=== PATIENT | male | born 1960 | race Caucasian/White ===

== ENCOUNTER 2017-09-10 14:35 | Emergency (ER) | payer OTHER, SELFPAY ==
[2017-09-10 14:41] VITALS: BP 138/82; PULSE 94; RESP 18; TEMP 36.9; O2SAT 95; BMI 30.4
--- NOTE | 2017-09-10 14:52 | DI.RAD.S_ITS ---
PROCEDURE: XR CHEST 2V INDICATIONS: chest pain TECHNIQUE: 2 views of the chest were acquired. COMPARISON: [facility], , CHEST 2 VIEW, 07/07/2016, 13:48. FINDINGS: Surgical changes and devices: None. Lungs and pleura: Small pleural effusions. No pneumothorax. Bibasilar pulmonary opacities left greater than right. Mediastinum: Mediastinal contours are normal. Heart size is normal. Bones and chest wall: No suspicious bony abnormalities. Soft tissues appear unremarkable. IMPRESSION: Trace pleural effusions with bibasilar pulmonary opacities left greater than right consistent with atelectasis or infiltrates. Dictated by: Anthony Kaur M.D. on 09/10/2017 at 14:23 Approved by: Anthony Kaur M.D. on 09/10/2017 at 14:25
[2017-09-10 15:05] LABS: Add Manual Diff / Slide Review NO; Basophils Percent Auto 0.7 % (0-2); Eosinophils Percent Auto 0.7 % (2-4); Hematocrit 40.3 % (41-53); Lymphocytes Percent Auto 18.8 % (25-40); Mean Corpuscular HGB Conc 34.7 % (30-36); Mean Corpuscular Hemoglobin 31.4 PG (26-34); Mean Corpuscular Volume 90.4 fL (80-100); Monocytes Percent Auto 11.1 % (3-14); Neutrophils Absolute Auto 5600 /uL (3000-5900); Neutrophils Percent Auto 68.7 % (50-75); Platelet Count 305 X10^3/uL (150-400); Red Blood Cell Count 4.45 X10^6/uL (4.5-5.9); Red Cell Distribution Width 12.3 % (11.6-14.8); White Blood Cell Count 8.1 X10^3/uL (4.5-11.0)
--- NOTE | 2017-09-10 15:08 | ED_ITS ---
HPI - Chest Pain General Chief Complaint: Chest Pain Stated Complaint: SOB, CHEST PAIN Time Seen by Provider: 09/10/17 14:55 Source: patient Mode of arrival: ambulatory Limitations: no limitations History of Present Illness HPI narrative: 57M hx of recent Right sided PE on pradaxa last night had L side pleuritic Chest pain with deep respirations. Went to clinic today and got a CXR which apparently showed a right side consolidation. Patient was then referred to the ED. Patient reports his pain is improved from prior, though deep respirations can mildly reproduce pain. PE history started with a 2-3 day episode of back pain which caused patient to remain in bed. Found PE after episode of SOB and chest pain. had a CTA scan at [place]; then subsequent CTA scan was negative for PE. Related Data Home Medications Medication Instructions Recorded Confirmed cyclobenzaprine 10 mg PO TID PRN 08/21/17 08/21/17 dabigatran etexilate [Pradaxa] 150 mg PO BID 08/21/17 08/21/17 oxycodone-acetaminophen [Percocet] 2 tab PO Q6H PRN 08/21/17 08/21/17 Previous Rx's Medication Instructions Recorded ranitidine HCl 150 mg PO BID #60 cap 08/21/17 cyclobenzaprine 10 mg PO TID #10 tab 09/10/17 Allergies Allergy/AdvReac Type Severity Reaction Status Date / Time No Known Drug Allergies Allergy Verified 09/10/17 14:45 Review of Systems Constitutional Denies chills, Denies fever(s), Denies lethargy and Denies weakness ENT Ears, Nose, Mouth, and Throat: Denies change in voice, Denies neck pain and Denies sore throat Cardiovascular Reports chest pain, Denies irregular heart rhythm, Denies lightheadedness, Denies palpitations, Denies dyspnea, Denies dyspnea on exertion and Denies orthopnea Respiratory Denies cough, Reports pain on inspiration, Denies dyspnea, Denies dyspnea on exertion and Denies wheezing Gastrointestinal Gastrointestinal: Denies abdominal pain, Denies change in bowel habits, Denies diarrhea, Denies nausea and Denies vomiting Genitourinary Denies hematuria, Denies flank pain, Denies urinary incontinence and Denies urinary urgency Musculoskeletal Denies neck pain Integumentary/Breasts Denies pruritus, Denies erythema, Denies rash and Denies wounds Neurologic Denies weakness Endocrine Denies palpitations Allergic/Immunologic Denies wheezing PFSH Social History Smoking Status: Never smoker Exam Initial Vital Signs Initial Vital Signs: Vital Signs Temperature 98.5 F 09/10/17 14:41 Pulse Rate 94 H 09/10/17 14:41 Respiratory Rate 18 09/10/17 14:41 Blood Pressure 138/82 H 09/10/17 14:41 Pulse Oximetry 95 09/10/17 14:41 Const General: cooperative and well developed Nutritional Appearance: well nourished Orientation: alert, awake, oriented x3 and not confused Eyes General: appearance normal, both eyes and all related structures Eyelids: eyelids normal Conjunctivae: conjunctivae normal Sclera: sclerae normal Pupils: PERRL EOM: EOM intact bilaterally Chest Chest: normal inspection of the chest Resp Effort & Inspection: normal respiratory effort, able to speak in complete sentences, no respiratory distress and no use of accessory muscles Auscultation: clear to auscultation bilaterally, no rales, no rhonchi and no wheezes Cardio Rate: regular rate Rhythm: regular rhythm Heart Sounds: no click, no gallops, no murmurs and no rubs Pulses: normal peripheral pulses GI Inspection: non-distended Palpation: soft, no hepatosplenomegaly, No guarding, No pulsatile mass and No tender Auscultation: normal bowel sounds Skin General: no rashes or lesions noted, No jaundice and No petechiae Neuro General: alert, oriented x3, gait normal and no focal motor deficits Speech: speech normal Extrem General: full ROM, no clubbing, cyanosis or edema, no pedal edema and no calf tenderness Course Orders Ordered: ED Orders 09/10/17 14:52 XR chest 2V Stat 09/10/17 14:56 Complete Blood Count AUTO DIFF Stat Comprehensive Metabolic Panel Stat Lipase Stat Troponin with CK Cardiac Panel Stat Discontinued Medications Acetaminophen (Tylenol) 975 mg PO NOW ONE Stop: 09/10/17 16:15 Last Admin: 09/10/17 16:22 Dose: 975 mg Aspirin (Aspirin Chew) 324 mg PO NOW ONE Stop: 09/10/17 14:52 Last Admin: 09/10/17 15:02 Dose: Sodium Chloride (Normal Saline 0.9%) 1,000 mls @ 150 mls/hr IV CONT REMINGTON Last Infusion: 09/10/17 16:29 Dose: 0 mls/hr Admin: 09/10/17 15:56 Dose: 999 mls/hr Vital Signs - 8 hr 09/10/17 14:41 09/10/17 15:32 09/10/17 16:09 Temperature 98.5 F Pulse Rate 94 H 87 90 Respiratory Rate 18 17 20 Blood Pressure 138/82 H Blood Pressure [Right Arm] 123/78 H 120/75 Pulse Oximetry 95 93 95 09/10/17 16:32 Temperature Pulse Rate 87 Respiratory Rate 15 Blood Pressure 125/75 H Blood Pressure [Right Arm] Pulse Oximetry 96 MDM - Chest Pain Lab Data Result diagrams: 09/10/17 14:56 09/10/17 14:56 Lab Results 09/10/17 09/10/17 Range/Units 14:56 14:56 WBC 8.1 (4.5-11.0) X10^3/uL RBC 4.45 L (4.5-5.9) X10^6/uL Hgb 14.0 (13.5-17.5) g/dL Hct 40.3 L (41-53) % MCV 90.4 (80-100) fL MCH 31.4 (26-34) PG MCHC 34.7 (30-36) % RDW 12.3 (11.6-14.8) % Plt Count 305 (150-400) X10^3/uL Neut % (Auto) 68.7 (50-75) % Lymph % (Auto) 18.8 L (25-40) % [place] % (Auto) 11.1 (3-14) % Eos % (Auto) 0.7 L (2-4) % Baso % (Auto) 0.7 (0-2) % Neut # (Auto) 5600 (4175-5143) /uL Sodium 142 (137-145) mmol/L Potassium 3.8 (3.4-5.1) mmol/L Chloride 101.0 (98-107) mmol/L Carbon Dioxide 26.0 (22-32) mmol/L BUN 18.0 (9-20) mg/dL Creatinine 0.90 (0.66-1.25) mg/dL Estimated GFR > 60.0 (>60) mL/min BUN/Creatinine Ratio 20.0 (6-22) Glucose 143 H (70-100) mg/dL Calcium 9.0 (8.4-10.2) mg/dL Total Bilirubin 1.2 (0.2-1.3) mg/dL AST 23 (17-59) IU/L ALT 36 (21-72) IU/L Alkaline Phosphatase 81 (38-126) U/L Total Creatine Kinase 53 L (55-170) U/L Troponin I < 0.012 (0.01-0.034) ng/mL Total Protein 7.3 (6.3-8.2) g/dL Albumin 4.0 (3.5-5.0) g/dL Globulin 3.3 (1.7-4.1) g/dL Albumin/Globulin Ratio 1.2 (1.0-2.8) Lipase 80 (23-300) U/L ECG Data Interpretation: Sinus rhythm HR [address]/Tw changes No ectopy FL intervals WNL MDM Narrative Medical decision making narrative: Patient symptoms likely back spasm. His SOB is more splinting due to pain from spasm. His CXR does not show any significant difference from CT on record. He is already treated with pradaxa. Vital signs stable, EKG WNL. Patient advised to take tylenol for pain and avoid increasing bleeding risk by taking other NSAIDs. Discharge Plan Departure Patient Disposition: Home, Self-Care Clinical Impression: Spasm of thoracic back muscle Discharge Date/Time: 09/10/17 16:34 Interventions: ED Discharge Assessment Last Done: 09/10/17 16:32 Instructions: DI for Back Spasm Activity Restrictions/Additional Instructions: Maintain adequate hydration. Please follow up with your primary care provider. Continue your home medications. May take tylenol for pain. Prescriptions: New cyclobenzaprine 10 mg tablet 10 mg PO TID Qty: 10 RF: 0 No Action oxycodone-acetaminophen [Percocet] 5-325 mg Tablet 2 tab PO Q6H PRN (Reason: Pain) RF: 0 cyclobenzaprine 5 mg Tablet 10 mg PO TID PRN (Reason: Muscle Spasm) RF: 0 dabigatran etexilate [Pradaxa] 150 mg Capsule 150 mg PO BID RF: 0 ranitidine HCl 150 mg capsule 150 mg PO BID Qty: 60 RF: 0
[2017-09-10 15:12] LABS: HEMOLYSIS < 15 (0-50)
[2017-09-10 15:18] LABS: Alanine Aminotransferase 36 IU/L (21-72); Albumin Globulin Ratio 1.2 (1.0-2.8); Alkaline Phosphatase 81 U/L (38-126); Aspartate Aminotransferase 23 IU/L (17-59); Bilirubin Total 1.2 mg/dL (0.2-1.3); Creatine Kinase 53 U/L (55-170); Estimated Glomerular Filt Rate > 60.0 mL/min (>60); Globulin 3.3 g/dL (1.7-4.1); Glucose 143 mg/dL (70-100); Lipase 80 U/L (23-300); Potassium 3.8 mmol/L (3.4-5.1); Sodium 142 mmol/L (137-145); Total Protein 7.3 g/dL (6.3-8.2)
[2017-09-10 15:31] LABS: Troponin I < 0.012 ng/mL (0.01-0.034)
[2017-09-10 15:32] VITALS: BP 123/78; PULSE 87; RESP 17; O2SAT 93
[2017-09-10] MEDS: SODIUM CHLORIDE 0.9% 1,000 ML 999 ML IV (15:56)
[2017-09-10 16:09] VITALS: BP 120/75; PULSE 90; RESP 20; O2SAT 95
[2017-09-10] MEDS: ACETAMINOPHEN 325 MG TABLET 975 MG PO (16:22)
[2017-09-10 16:32] VITALS: BP 125/75; PULSE 87; RESP 15; O2SAT 96
== END 2017-09-10 16:34 | disposition home or self-care (01) ==
PROVIDERS: Emergency Provider Student in an Organized Health Care Education/Training Program; Family Provider Nurse Practitioner; PCP Nurse Practitioner
DX: M62.830 Muscle spasm of back (principal)
CPT/HCPCS: 36591; 71046; 80053; 82550; 82553; 83690; 84484; 85025; 93005; 96360; 99283; 99285

== ENCOUNTER 2019-01-25 14:49 | Emergency (ER) | payer OTHER, SELFPAY ==
[2019-01-25 14:58] VITALS: BP 145/87; PULSE 75; RESP 20; TEMP 36.4; O2SAT 97
--- NOTE | 2019-01-25 15:00 | DI.RAD.S_ITS ---
PROCEDURE: XR CHEST 2V INDICATIONS: chest pain TECHNIQUE: 2 views of the chest were acquired. COMPARISON: [facility], , CHEST 2 VIEW, 07/07/2016, 13:48. [facility], , XR CHEST 2V, 09/10/2017, 14:31. FINDINGS: Surgical changes and devices: None. Lungs and pleura: Lungs are clear. No pleural effusions or pneumothorax. Mediastinum: Mediastinal contours are normal. Heart size is normal. Bones and chest wall: No suspicious bony abnormalities. Soft tissues appear unremarkable. IMPRESSION: 1. No acute cardiopulmonary disease. Dictated by: Sesar Cochran M.D. on 01/25/2019 at 15:33 Approved by: Sesar Cochran M.D. on 01/25/2019 at 15:34
[2019-01-25 15:25] LABS: Add Manual Diff / Slide Review NO; Basophils Absolute Auto 100 /uL (0-100); Eosinophils Absolute Auto 100 /uL (0-450); Hematocrit 45.6 % (41-53); Hemoglobin 15.5 g/dL (13.5-17.5); Lymphocytes Absolute Auto 2100 /uL (1100-4500); Lymphocytes Percent Auto 35.1 % (25-40); Mean Corpuscular Hemoglobin 32.1 PG (26-34); Mean Corpuscular Volume 94.3 fL (80-100); Monocytes Absolute Auto 600 /uL (0-900); Monocytes Percent Auto 10.4 % (3-14); Neutrophils Absolute Auto 3000 /uL (1500-7000); Neutrophils Percent Auto 51.5 % (50-75); Platelet Count 283 X10^3/uL (150-400); Red Blood Cell Count 4.83 X10^6/uL (4.5-5.9); Red Cell Distribution Width 12.7 % (11.6-14.8); White Blood Cell Count 5.9 X10^3/uL (4.5-11.0)
[2019-01-25 15:41] LABS: D Dimer < 200 ng/mL (<230)
--- NOTE | 2019-01-25 15:42 | ED_ITS ---
HPI - Chest Pain General Chief Complaint: Chest Pain Stated Complaint: SHARP PAIN IN CHEST Time Seen by Provider: 01/25/19 15:21 Source: patient Mode of arrival: Ambulatory Limitations: no limitations History of Present Illness HPI narrative: 58-year-old male comes to the emergency department with complaint of chest pain. Patient comes in with complaint of sort of sharp pains in his chest. It started yesterday lasted for an hour insert resolved. Today starting at about 9:00 a.m. this morning is still present but not as intense. It is almost little bit between his shoulder blades. Patient denies any fevers, denies any chills, denies any cold cough or congestion. No hemoptysis. He states he does have a little bit of pleuritic chest pain with it is worse with the pencil a gray. He denies any pain with cough and has not had cough. He denies any other exacerbating factors besides twisting for movement, he states that walking or exertion does not seem to make it worse. Sitting still or not moving does seem to alleviate it. He does not appreciate of leaning forward or backwards makes any appreciable difference. No nausea, no vomiting. No issues with bowel movements or urination. Patient denies any swelling in extremities. Patient has had a history of pulmonary emboli and 3 weeks later was diagnosed with pericarditis. They did stop his anticoagulants and treated him with colchicine for his pericarditis. He is no longer on any medications. He states that they related his pulmonary emboli to lying in bed for several days secondary to back pain. He did have imaging that stated that his PE had cleared before he was diagnosed with pericarditis. Denies any past surgical history, no allergies, no tobacco. Drinks 2 alcoholic drinks daily and no illicits. He does live on [address]. Related Data Home Medications Medication Instructions Recorded Confirmed No Known Home Medications 01/25/19 01/25/19 Allergies Allergy/AdvReac Type Severity Reaction Status Date / Time No Known Drug Allergies Allergy Verified 09/10/17 14:45 Review of Systems Review of Systems ROS Unobtainable: All systems reviewed & are unremarkable except as noted in HPI and below Constitutional Constitutional: Denies chills, Denies fever(s), Denies lethargy and Denies weak ness Cardiovascular Cardiovascular: Reports chest pain, Denies chest pain at rest, Denies chest pain with activity, Denies syncope, Denies irregular heart rhythm, Denies lightheadedness, Denies radiating jaw, neck or arm pain (shoulders), Denies palpitations, Denies dyspnea, Denies dyspnea on exertion and Denies orthopnea Respiratory Respiratory: Denies change in phlegm color, Denies chest congestion, Denies cough, Denies hemoptysis, Denies excessive phlegm production, Reports pain on inspiration, Denies pain with cough, Denies dyspnea, Denies dyspnea on exertion and Denies wheezing Neurologic Neurologic: Denies syncope and Denies weakness Endocrine Endocrine: Denies palpitations Allergic/Immunologic Allergic/Immunologic: Denies wheezing [facility] Social History Smoking Status: Never smoker Exam Narrative Exam Narrative: GENERAL: Alert and oriented x three, well-nourished, well- appearing male in no acute distress. HEENT: Head normocephalic, atraumatic, EOMI, pupils reactive, face symmetric, moist mucous membranes NECK: Supple, full range of motion CARDIOVASCULAR: Regular rate and rhythm without murmurs, rubs or gallops. Non reproducible chest pain. RESPIRATORY: Breath sounds equal bilaterally, no wheezes rales or rhonchi. ABDOMEN: Soft, nontender. Normoactive bowel sounds all 4 quadrants. No guardi ng or rebound, rigidity, no mass : No CVA tenderness EXTREMITIES: Normal range of motion, no edema. Neurovascularly intact NEUROLOGICAL: Cranial nerves II through XII grossly intact. Moving all ex tremities SKIN: Warm, dry, no petechiae, no rashes or lesions. Initial Vital Signs Initial Vital Signs: Vital Signs Temperature 97.5 F L 01/25/19 14:58 Pulse Rate 75 01/25/19 14:58 Respiratory Rate 20 01/25/19 14:58 Blood Pressure 145/87 H 01/25/19 14:58 Pulse Oximetry 97 01/25/19 14:58 Scores HEART Score Heart Score history: Slightly Suspicious Heart Score EKG: Normal Heart Score Age: 45-64 years old Heart Score risk factors: 1-2 risk factors Heart Score troponin: < or = to normal limit Heart Score Total: 2 Course Orders Ordered: ED Orders 01/25/19 14:59 EKG-12 Lead Stat 01/25/19 15:00 Chest [XR chest 2V] Stat 01/25/19 15:15 C-Reactive Protein Quant Stat Complete Blood Count AUTO DIFF Stat Comprehensive Metabolic Panel Stat D Dimer Stat Erythrocyte Sedimentation Rate Stat Troponin & CK Cardiac Panel Stat Vital Signs Vital signs: Vital Signs - 8 hr 01/25/19 14:58 01/25/19 15:43 01/25/19 16:16 Temperature 97.5 F L Pulse Rate 75 74 79 Respiratory Rate 20 18 18 Blood Pressure 145/87 H Blood Pressure [Left Arm] 148/103 H 132/88 Pulse Oximetry 97 98 99 MDM - Chest Pain Lab Data Attestation: I reviewed the patient's lab results. Result diagrams: 01/25/19 15:15 01/25/19 15:15 Labs: Lab Results 01/25/19 01/25/19 01/25/19 Range/Units 15:15 15:15 15:15 WBC 5.9 (4.5-11.0) X10^3/uL RBC 4.83 (4.5-5.9) X10^6/uL Hgb 15.5 (13.5-17.5) g/dL Hct 45.6 (41-53) % MCV 94.3 (80-100) fL MCH 32.1 (26-34) PG MCHC 34.0 (30-36) % RDW 12.7 (11.6-14.8) % Plt Count 283 (150-400) X10^3/uL Neut % (Auto) 51.5 (50-75) % Lymph % (Auto) 35.1 (25-40) % [place] % (Auto) 10.4 (3-14) % Eos % (Auto) 2.0 (2-4) % Baso % (Auto) 1.0 (0-2) % Neut # (Auto) 3000 (5619-1942) /uL Lymph # (Auto) 2100 (5265-2438) /uL [place] # (Auto) 600 (0-900) /uL Eos # (Auto) 100 (0-450) /uL Baso # (Auto) 100 (0-100) /uL ESR (0-15) MM/HR D-Dimer < 200 (<230) ng/mL Sodium 140 (137-145) mmol/L Potassium 4.5 (3.4-5.1) mmol/L Chloride 103 (98-107) mmol/L Carbon Dioxide 30 (22-32) mmol/L BUN 16 (9-20) mg/dL Creatinine 0.90 (0.66-1.25) mg/dL Estimated GFR > 60.0 (>60) mL/min BUN/Creatinine Ratio 17.8 (6-22) Glucose 95 (70-100) mg/dL Calcium 9.2 (8.4-10.2) mg/dL Total Bilirubin 0.5 (0.2-1.3) mg/dL AST 49 (17-59) IU/L ALT 47 (21-72) IU/L Alkaline Phosphatase 69 (38-126) U/L Total Creatine Kinase 285 H (55-170) U/L CK-MB (CK-2) 0.52 (<2.37) ng/mL CK-MB (CK-2) Rel Index 0.2 L (1.5-5.0) % Troponin I < 0.012 (0.01-0.034) ng/mL C-Reactive Protein (<1.0) mg/dL Total Protein 7.5 (6.3-8.2) g/dL Albumin 4.4 (3.5-5.0) g/dL Globulin 3.1 (1.7-4.1) g/dL Albumin/Globulin Ratio 1.4 (1.0-2.8) 01/25/19 01/25/19 Range/Units 15:15 15:15 WBC (4.5-11.0) X10^3/uL RBC (4.5-5.9) X10^6/uL Hgb (13.5-17.5) g/dL Hct (41-53) % MCV (80-100) fL MCH (26-34) PG MCHC (30-36) % RDW (11.6-14.8) % Plt Count (150-400) X10^3/uL Neut % (Auto) (50-75) % Lymph % (Auto) (25-40) % [place] % (Auto) (3-14) % Eos % (Auto) (2-4) % Baso % (Auto) (0-2) % Neut # (Auto) (6775-2106) /uL Lymph # (Auto) (7184-8435) /uL [place] # (Auto) (0-900) /uL Eos # (Auto) (0-450) /uL Baso # (Auto) (0-100) /uL ESR 1 (0-15) MM/HR D-Dimer (<230) ng/mL Sodium (137-145) mmol/L Potassium (3.4-5.1) mmol/L Chloride (98-107) mmol/L Carbon Dioxide (22-32) mmol/L BUN (9-20) mg/dL Creatinine (0.66-1.25) mg/dL Estimated GFR (>60) mL/min BUN/Creatinine Ratio (6-22) Glucose (70-100) mg/dL Calcium (8.4-10.2) mg/dL Total Bilirubin (0.2-1.3) mg/dL AST (17-59) IU/L ALT (21-72) IU/L Alkaline Phosphatase (38-126) U/L Total Creatine Kinase (55-170) U/L CK-MB (CK-2) (<2.37) ng/mL CK-MB (CK-2) Rel Index (1.5-5.0) % Troponin I (0.01-0.034) ng/mL C-Reactive Protein < 0.5 (<1.0) mg/dL Total Protein (6.3-8.2) g/dL Albumin (3.5-5.0) g/dL Globulin (1.7-4.1) g/dL Albumin/Globulin Ratio (1.0-2.8) Imaging Data Chest x-ray: Radiologist's impression: [address] [address] XRay Report Signed Patient: Jovani Alan AARONR#: [id number] : 2Acct:[id number] Age/Sex: 58 / MDate of Service: 01/25/19 Loc: ED Accession Number: [id number] Procedure: XR chest 2V Ordering Provider: Lizabeth Barajas D.O. PROCEDURE: XR CHEST 2V INDICATIONS: chest pain TECHNIQUE: 2 views of the chest were acquired. COMPARISON: [facility], CHEST 2 VIEW, 07/07/2016, 13:48. [facility], , XR CHEST 2V, 09/10/2017, 14:31. FINDINGS: Surgical changes and devices: None. Lungs and pleura: Lungs are clear. No pleural effusions or pneumothorax. Mediastinum: Mediastinal contours are normal. Heart size is normal. Bones and chest wall: No suspicious bony abnormalities. Soft tissues appear unremarkable. IMPRESSION: 1. No acute cardiopulmonary disease. Dictated by: Sesar Cochran M.D. on 01/25/2019 at 15:33 Approved by: Sesar Cochran M.D. on 01/25/2019 at 15:34 ECG Data Attestation: I personally reviewed and interpreted this ECG as follows: Prior ECG tracings: available for review Interpretation: Sinus rhythm rate of 79 P are 175 QRS of 94 QTC of 395. No significant ST changes appreciated. Patient has Q-wave in 1 aVL patient does not have IN elevation today. Patient has some ST elevation on prior EKG done 09/10/2017 but on the prior from that earlier in August of 2017. MDM Narrative Medical decision making narrative: Discussed with patient has a history of pulmonary emboli, states that it was cleared and then he developed pericarditis 3 weeks later. Patient's ESR, CRP and troponin are negative. His D-dimer is negative. We had a long discussion about risks versus benefits for angiography. He feels comfortable in not doing angiography today. His vitals, EKG lab work and my evaluation do not increase my suspicion for PE significantly today and I feel that this is an appropriate decision. We did discuss that he needs to return if he is having any new or worsening symptoms and signs and symptoms to look out for. Patient is comfortable with this plan his is at bedside who is also a part of this discussion. Discharge Plan Departure Patient Disposition: Home Clinical Impression: Atypical chest pain Discharge Date/Time: 01/25/19 17:02 Instructions: DI for Atypical Chest Pain Activity Restrictions/Additional Instructions: Follow up with primary care or your specialist for recheck this week. You may take ibuprofen up to 800 mg every 8 hours as needed. Return to the emergency department for fevers greater 100.4 F, new chest pain, shortness of breath, lightheadedness, passing out, new swelling in your extremities, redness in her extremities, persistent vomiting, black or bloody stools or any other new or concerning symptoms. Prescriptions: No Action No Known Home Medications RF: 0 Referrals: Leah Ornelas ARNP [Primary Care Provider] -
[2019-01-25 15:43] VITALS: BP 148/103; PULSE 74; RESP 18; O2SAT 98
[2019-01-25 15:43] LABS: Alanine Aminotransferase 47 IU/L (21-72); Albumin 4.4 g/dL (3.5-5.0); Albumin Globulin Ratio 1.4 (1.0-2.8); Alkaline Phosphatase 69 U/L (38-126); Aspartate Aminotransferase 49 IU/L (17-59); BUN Creatinine Ratio 17.8 (6-22); Bilirubin Total 0.5 mg/dL (0.2-1.3); Blood Urea Nitrogen 16 mg/dL (9-20); Calcium 9.2 mg/dL (8.4-10.2); Carbon Dioxide 30 mmol/L (22-32); Chloride 103 mmol/L (98-107); Creatine Kinase 285 U/L (55-170); Estimated Glomerular Filt Rate > 60.0 mL/min (>60); Globulin 3.1 g/dL (1.7-4.1); Glucose 95 mg/dL (70-100); Sodium 140 mmol/L (137-145); Total Protein 7.5 g/dL (6.3-8.2)
[2019-01-25 15:44] LABS: HEMOLYSIS 59 (0-50)
[2019-01-25 15:45] LABS: Potassium 4.5 mmol/L (3.4-5.1)
[2019-01-25 15:55] LABS: Troponin I < 0.012 ng/mL (0.01-0.034)
[2019-01-25 15:58] LABS: CKMB % Relative Index 0.2 % (1.5-5.0); Creatine Kinase MB 0.52 ng/mL (<2.37)
[2019-01-25 16:16] VITALS: BP 132/88; PULSE 79; RESP 18; O2SAT 99
[2019-01-25 16:24] LABS: C-Reactive Protein Quant < 0.5 mg/dL (<1.0)
[2019-01-25 16:25] LABS: Erythrocyte Sedimentation Rate 1 MM/HR (0-15)
== END 2019-01-25 17:02 | disposition home or self-care (01) ==
PROVIDERS: Emergency Provider Emergency Medicine; Family Provider Nurse Practitioner; PCP Nurse Practitioner
DX: R07.89 Other chest pain (principal)
CPT/HCPCS: 36415; 71046; 80053; 82550; 82553; 84484; 85025; 85379; 85651; 86140; 93005; 99282; 99285

== ENCOUNTER → 2022-07-12 11:00 | Outpatient (CLI) | payer OTHER, SELFPAY ==
--- NOTE | 2022-07-12 | DI.MRI.S_ITS ---
PROCEDURE: MR LUMBAR SPINE WO CON INDICATIONS: Radiculopathy, lumbar region TECHNIQUE: Noncontrast sagittal T1 spin echo and T2 fast echo, sagittal STIR, and T2 fast spin echo through the lumbar spine. COMPARISON: [facility], [place], XR LUMBAR SPINE WITH OBLIQUES PLUS FLEXION EXTENSION, 07/02/2022, 9:41. [facility], CR, XR LUMBAR SPINE WITH OBLIQUES PLUS FLEXION EXTENSION, 05/22/2021, 14:46. FINDINGS: Image quality: Excellent. Alignment and Curvature: There is normal bony alignment. Bone Marrow: Mild Modic type 1 degenerative endplate changes at the L3-4 level posteriorly. Marrow is of normal overall signal. No acute vertebral body compression fractures. Spinal Cord: Conus medullaris terminates at the L1 level. Visualized cord demonstrates normal signal and size. Paraspinous Soft Tissues: No paravertebral masses. Mild grade 1-2 fatty infiltration of the paraspinous musculature. T12-L1: Disc desiccation without significant spinal canal stenosis or neural foraminal narrowing. L1-L2: Disc desiccation and mild circumferential disc bulging without significant spinal canal stenosis or neural foraminal narrowing. L2-L3: Disc desiccation and mild circumferential disc bulging and mild bilateral facet hypertrophy resulting in mild bilateral neural foraminal narrowing without significant spinal canal stenosis. L3-L4: Disc desiccation and loss of disc space height with circumferential disc bulging and mild bilateral facet hypertrophy. Findings result in mild to moderate narrowing of the bilateral neural foramina and without significant spinal canal stenosis. L4-L5: Disc desiccation and loss of disc space height with circumferential disc bulging and a superimposed central disc protrusion measuring approximately 12 x 3 mm as well as mild to moderate bilateral facet hypertrophy. Findings result in mild narrowing of the spinal canal as well as moderate left and [id number] right neural foraminal narrowing. L5-S1: Disc desiccation and loss of disc space height with mild circumferential disc bulging as well as a small central disc protrusion and mild bilateral facet hypertrophy. Findings do not result in significant spinal canal stenosis or neural foraminal narrowing. IMPRESSION: 1. Multilevel [id number] degenerative disc disease and facet hypertrophy as described in detail in the body of the report. Small central disc protrusions are seen at the L4-5 and L5-S1 levels. 2. No high-grade spinal canal stenosis or high-grade neural foraminal narrowing. Approved by: Hardeep Arias M.D. on 07/12/2022 at 12:07
== END ==
PROVIDERS: PCP Nurse Practitioner; Referring Provider Physical Medicine & Rehabilitation Pain Medicine; Visit Provider Physical Medicine & Rehabilitation Pain Medicine
DX: M54.16 Radiculopathy, lumbar region (principal); M51.36 Other intervertebral disc degeneration, lumbar region; M48.061 Spinal stenosis, lumbar region without neurogenic claudication; M47.896 Other spondylosis, lumbar region
CPT/HCPCS: 72148

== ENCOUNTER 2023-07-31 08:30 | Outpatient (RCR) | payer OTHER, SELFPAY | END 2023-07-31 10:30 | LOC: CAR 08:30 | PROVIDERS: PCP Nurse Practitioner; Referring Provider Physician Assistant Surgical; Visit Provider Physician Assistant Surgical | DX: Z95.1 Presence of aortocoronary bypass graft (principal) | CPT/HCPCS: 93798 ==

== ENCOUNTER 2023-08-25 08:46 | Day surgery (SDC) | payer OTHER, SELFPAY ==
--- NOTE | 2023-08-25 | PATH_ITS ---
[facility] Accession Number: [id number] No. of containers..02 Tissue . 01 Material submitted: . PART A: colon - ASCENDING COLON POLYP PART B: colon - SIGMOID POLYP . 01 Diagnosis: Part A: ASCENDING COLON POLYP: Tubular adenoma. . Part B: SIGMOID POLYP: Tubular adenoma. STO 08/29/2023 1234 Local . 01 Electronically signed: . Sesar Johns MD, Pathologist NPI- [id number] . 01 Gross description: . Part A: ASCENDING COLON POLYP: Received in formalin are 2 fragment(s) of garcia, soft tissue measuring 0.2 x 0.2 x 0.2 cm to 0.7 x 0.6 x 0.4 cm submitted entirely in 1 cassette(s) . Part B: SIGMOID POLYP: Received in formalin are multiple fragment(s) of garcia, soft tissue measuring 0.1 x 0.1 x 0.1 cm to 0.7 x 0.6 x 0.4 cm submitted entirely in 1 cassette(s) /KRISTINE 08/29/2023 1234 Local . 01 Pathologist provided ICD-10: D12.2, D12.5 . 01 CPT . 062854, 032822 Specimen Comment: A courtesy copy of this report has been sent to [phone] Performed at: [facility] [address] [place] [address], [place], [place] [id number] MD Sesar Johns MD Phone: [phone]
--- NOTE | 2023-08-25 09:41 | PM.HP.1 ---
History of Present Illness History of Present Illness Date Patient Seen: 08/25/23 Time Patient Seen: 09:41 Chief complaint: Dx Colonoscopy Narrative: Jovani is a 63-year-old man who had a positive fit test. It has been over 10 years since his last colonoscopy. Did have heart surgery last year. He has recently stopped his Plavix were good at the advice of his project manager.. [facility] Medical History (Updated 05/12/23 @ 10:34 by Janis Alarcon RN) Tremors of nervous system Transaminitis Pleural effusion Pericardial effusion NSTEMI (non-ST elevated myocardial infarction) Hx pulmonary embolism Hypertension Coronary artery disease involving [place] coronary artery of [place] heart without angina pectoris Ascending aorta enlargement Low back pain Pulmonary embolism Social History Smoking Status: Never smoker Meds Home Medications and Allergies Home Medications Medication Instructions Recorded Confirmed Type amiodarone 200 mg tablet 200 mg PO BID 05/12/23 05/12/23 History ascorbic acid (vitamin C) 1,000 mg 1 g PO DAILY 05/12/23 08/25/23 History tablet aspirin 81 mg tablet,delayed 81 mg PO DAILY 05/12/23 08/25/23 History release atorvastatin 80 mg tablet 80 mg PO DAILY 05/12/23 08/25/23 History clopidogrel 75 mg tablet 75 mg PO DAILY 05/12/23 08/25/23 History ergocalciferol (vitamin D2) 50 mcg 50 mcg PO DAILY 05/12/23 08/25/23 History (2,000 unit) capsule metoprolol tartrate 25 mg tablet 25 mg PO BID 05/12/23 08/25/23 History nitroglycerin 0.4 mg sublingual 0.4 mg sublingual Q5-15M PRN Chest 05/12/23 08/25/23 History tablet Pain pantoprazole 40 mg tablet,delayed 40 mg PO DAILY 05/12/23 08/25/23 History release propranolol 10 mg tablet 10 mg PO ONCE PRN tremors 05/12/23 08/25/23 History Allergies Allergy/AdvReac Type Severity Reaction Status Date / Time No Known Drug Allergies Allergy Verified 05/12/23 10:22 Exam Const General: No acute distress Resp Effort & Inspection: normal respiratory effort Assessment & Plan Assessment and plan (1) Positive FIT (fecal immunochemical test): Status: Acute Plan We reviewed the risks and benefits of colonoscopy for colon cancer screening and he would like to proceed.
[2023-08-25 09:43] VITALS: BP 145/79; PULSE 64; RESP 17; TEMP 36.4; O2SAT 98
--- NOTE | 2023-08-25 09:50 | SUR.PREOP ---
Pre-op EKG done per Dr Nolberto suárez. Pt with CABG Feb 2023 and no recent EKG
[2023-08-25] MEDS: LACTATED RINGERS 1,000 ML 42 ML IV (09:54)
--- NOTE | 2023-08-25 11:10 | PM.OP.COLON ---
Operative Date/Time/Diagnoses Date of procedure: 08/25/23 Time of procedure: 11:10 Pre-op diagnosis: Positive fit test Post-op diagnosis: same Procedure & Clinicians Study performed: Colonoscopy Same procedure as scheduled: Yes Surgeon: Solo Koroma Procedure Notes Procedure in detail: Surgeon: Solo Koroma MD Anesthesia: Padmaja Arvizu DO Procedure: The patient was brought to the endoscopy suite, placed in left lateral decubitus position. The patient was connected to monitoring devices. A time-out was performed. Sedation was administered. Once the patient was adequately sedated, a digital rectal exam was performed and was normal. The scope was then inserted and advanced to the cecum where the appendiceal orifice was identified and photographed. The scope was then slowly withdrawn over greater than 6 minutes. The mucosa was thoroughly inspected. There was a 7 mm polyp in the ascending colon removed with a cold snare. There was a 1 cm polyp in the sigmoid colon removed with cold snare and a single hemoclip was applied with good effect. The scope was retroflexed in the rectum. No other abnormalities were noted. The scope was straightened and removed. The patient was awakened and brought to recovery. Scope withdrawal time: 12 minutes Sedation time: 20 minutes EBL: 5 mL Findings: 7 mm ascending colon polyp and 1 cm sigmoid colon polyp Post-procedure Disposition: PACU
[2023-08-25 11:15] VITALS: BP 92/62; PULSE 67; RESP 21; TEMP 36.3; O2SAT 96
[2023-08-25 11:20] VITALS: BP 99/70; PULSE 61; RESP 12; O2SAT 96
[2023-08-25 11:23] VITALS: BP 109/72; PULSE 57; RESP 14; O2SAT 97
[2023-08-25 11:31] VITALS: BP 132/79; PULSE 74; RESP 13; O2SAT 97
[2023-08-25 11:40] VITALS: BP 135/83; PULSE 62; RESP 16; TEMP 36.6; O2SAT 99
== END 2023-08-25 11:45 | disposition home or self-care (01) ==
PROVIDERS: PCP Family Medicine; Referring Provider Surgery; Visit Provider Surgery
PROC: 0DJD8ZZ Inspection of Lower Intestinal Tract, Via Natural or Artificial Opening Endoscopic (ICD-10-PCS; CPT 45378; principal; 2023-08-25 10:00)
DX: Z12.11 Encounter for screening for malignant neoplasm of colon (principal); R19.5 Other fecal abnormalities; I10 Essential (primary) hypertension; I25.2 Old myocardial infarction; D12.5 Benign neoplasm of sigmoid colon; D12.2 Benign neoplasm of ascending colon
CPT/HCPCS: 45385; 93005; J2704

== ENCOUNTER → 2024-08-02 10:40 | Outpatient (CLI) | payer BC, SELFPAY ==
[2024-08-02 11:52] LABS: Add Manual Diff / Slide Review NO; Basophils Absolute Auto 0 /uL (0-100); Basophils Percent Auto 0.6 % (0-2); Eosinophils Absolute Auto 100 /uL (0-450); Eosinophils Percent Auto 1.4 % (2-4); Hematocrit 45.3 % (41-53); Hemoglobin 15.3 g/dL (13.5-17.5); Lymphocytes Absolute Auto 1700 /uL (1100-4500); Lymphocytes Percent Auto 24.1 % (25-40); Mean Corpuscular HGB Conc 33.7 % (30-36); Mean Corpuscular Hemoglobin 31.8 PG (26-34); Mean Corpuscular Volume 94.4 fL (80-100); Monocytes Absolute Auto 600 /uL (0-900); Monocytes Percent Auto 8.2 % (3-14); Neutrophils Absolute Auto 4500 /uL (1500-7000); Neutrophils Percent Auto 65.7 % (50-75); Platelet Count 298 X10^3/uL (150-400); White Blood Cell Count 6.9 X10^3/uL (4.5-11.0)
[2024-08-02 12:03] LABS: Hemoglobin A1C% w Est Avg Glu 5.3 % (4.0-6.0)
[2024-08-02 12:23] LABS: Alanine Aminotransferase 47 IU/L (<50); Albumin 4.8 g/dL (3.5-5.0); Albumin Globulin Ratio 1.9 (1.0-2.8); Alkaline Phosphatase 108 U/L (38-126); Aspartate Aminotransferase 66 IU/L (17-59); BUN Creatinine Ratio 22.2 (6-22); Bilirubin Total 1.1 mg/dL (0.2-1.3); Blood Urea Nitrogen 22 mg/dL (9-20); Calcium 9.2 mg/dL (8.4-10.2); Carbon Dioxide 26 mmol/L (22-32); Chloride 101 mmol/L (98-107); Estimated Glomerular Filt Rate > 60 mL/min (>60); Globulin 2.5 g/dL (1.7-4.1); Glucose 97 mg/dL (80-110); HEMOLYSIS < 15 (0-50); Magnesium 1.9 mg/dL (1.6-2.3); Potassium 4.3 mmol/L (3.4-5.1); Sodium 137 mmol/L (137-145); Total Protein 7.3 g/dL (6.3-8.2)
[2024-08-02 12:31] LABS: Luteinizing Hormone 6.91 mIU/mL
[2024-08-02 12:53] LABS: Thyroid Stimulating Hormone 3.98 uIU/mL (0.47-4.68)
[2024-08-02 12:56] LABS: Testosterone 291 ng/dL (71.8-623)
[2024-08-02 22:28] LABS: T4 Total Thyroxine 4.88 ug/dL (5.5-11.0)
[2024-08-03 03:39] LABS: CRP, High Sensitivity 1.78 mg/L (0.00-3.00)
[2024-08-03 08:12] LABS: Insulin Level Total 14.9 uIU/mL (2.6-24.9)
[2024-08-03 21:11] LABS: Anti Thyroglobulin Antibody <1.0 IU/mL (0.0-0.9); Thyroid Peroxidase Antibodies 16 IU/mL (0-34)
== END ==
PROVIDERS: PCP Family Medicine; Referring Provider Specialist; Visit Provider Specialist
DX: Z51.81 Encounter for therapeutic drug level monitoring (principal); R68.82 Decreased libido; R53.83 Other fatigue; R73.09 Other abnormal glucose; E78.2 Mixed hyperlipidemia; I10 Essential (primary) hypertension; L71.9 Rosacea, unspecified
CPT/HCPCS: 36415; 80053; 80061; 83002; 83036; 83525; 83735; 84403; 84436; 84443; 85025; 86140; 86376; 86800